=== PATIENT | female | born 1940 | race Caucasian/White ===

== ENCOUNTER 2020-05-08 13:11 | Outpatient (CLI) | payer MEDICARE, MEDICAID, SELFPAY | END 2020-05-08 13:12 | disposition home or self-care (01) | LOC: ANHBWCAUD 13:14 | PROVIDERS: PCP Family Medicine; Visit Provider Family Medicine | DX: H91.90 Unspecified hearing loss, unspecified ear (principal) | CPT/HCPCS: 92557; 92567 ==

== ENCOUNTER 2020-05-27 13:02 | Outpatient (RCR) | payer MEDICAID, SELFPAY | END 2020-08-25 23:59 | disposition home or self-care (01) | LOC: ANHBWCAUD 13:02 | PROVIDERS: PCP Family Medicine; Visit Provider Family Medicine | DX: Z46.1 Encounter for fitting and adjustment of hearing aid (principal) | CPT/HCPCS: V5160; V5261 ==

== ENCOUNTER 2021-04-22 16:37 | Outpatient (NON) | payer MEDICARE, SELFPAY ==
[2021-04-22 17:39] LABS: Add Urine Microscopic? YES; Appearance Urine Clear (Clear); Bilirubin Urine Negative (Negative); Blood Urine Negative (Negative); Color Urine Light Yellow (Yellow); Glucose Urine UA Negative (Negative); Ketones Urine Negative (Negative); Leukocyte Esterase Ur 2+ (Negative); Nitrate Urine Negative (Negative); Protein Urine Negative (Negative); Specific Grav Ur <= 1.005 (1.010-1.020); Urobilinogen Urine 0.2 mg/dL (0.2-1.0); pH Urine 6.5 (5.0-8.0)
[2021-04-22 17:47] LABS: Bacteria Urine 1+ /hpf; RBC Urine 0-2 /hpf (0-2); Transitional Epi Cells Urine Few /hpf
== END 2021-04-22 16:38 | disposition home or self-care (01) ==
LOC: CHSLAB 16:41
PROVIDERS: Visit Provider Family Medicine
DX: N39.0 Urinary tract infection, site not specified (principal)
CPT/HCPCS: 81001; 87086

== ENCOUNTER 2021-08-27 19:17 | Outpatient (NON) | payer MEDICARE, SELFPAY ==
[2021-08-27 20:26] LABS: Rheumatoid Factor Screen Negative (Negative)
[2021-09-02 12:15] LABS: JO 1 Antibody <1.0; SS-B <1.0; Scleroderma 70 Antibody <1.0
[2021-09-02 13:22] LABS: Immunoglobulin G 955 mg/dL (600-1540)
== END 2021-08-27 19:18 | disposition home or self-care (01) ==
LOC: CHSLAB 19:21
DX: J84.9 Interstitial pulmonary disease, unspecified (principal)
CPT/HCPCS: 36415; 82784; 86038; 86225; 86235; 86430